=== PATIENT | female | born 1970 | race Two or more races ===

== ENCOUNTER → 2017-11-09 | Outpatient (CLI) | payer OTHER ==
[~2017-11-09] MED LIST: ALBUIS INH; ASPI81CH PO; Acidophilus La100 GM; BENA20 PO; Cinnamon3.7 ML; Cinnamon500 MG PO; DULO60 PO; EMOQUETTE1 EACH; ESZO2 PO; FAMO20 PO; FISH OIL + D31 EACH PO; FURO20; GABA300 PO; HYDACE5 PO; HYDR1TAB94 PO; INSULANI SC; INSULANPEN; LISI20 PO; LORA10ER PO; Levaquin500 MG PO; METF500 PO; METO50ER PO; MONT10T PO; Mucinex600 MG PO; NAPR500 PO; Novolog100 UNIT/1 SQ; ORACONB PO; OXYC10ER; PRAV40 PO; PROM25 PO; QUIN200 PO; SOMA350 MG; Sudogest30 MG; TEMA30 PO; TRAM50 PO; Vitamin D400 UNI2 PO; Zithromax250 MG PO
== END | disposition home or self-care (01) ==
LOC: LAB EV 16:27
DX: N39.0 Urinary tract infection, site not specified (principal)
CPT/HCPCS: 87086

== ENCOUNTER → 2017-11-22 | Outpatient (CLI) | payer OTHER ==
[2017-11-22 08:27] LABS: Adenovirus F 40/41 Not Detected (NOT DETECT); Astrovirus Not Detected (NOT DETECT); Campylobacter Sp Not Detected (NOT DETECT); Cryptosporidium Not Detected (NOT DETECT); Cyclospora Cayetanensis Not Detected (NOT DETECT); E. Coli O157 Not Detected (NOT DETECT); Entamoeba Histolytica Not Detected (NOT DETECT); Enteroaggregative E. coli-EAEC Not Detected (NOT DETECT); Enteropathogenic E. coli-EPEC Not Detected (NOT DETECT); Enterotoxigenic E. coli-ETEC Not Detected (NOT DETECT); Giardia Lamblia Not Detected (NOT DETECT); Norovirus GI/GII Not Detected (NOT DETECT); Plesiomonas Shigelloides Not Detected (NOT DETECT); Rotavirus A Not Detected (NOT DETECT); Salmonella Sp Not Detected (NOT DETECT); Sapovirus Not Detected (NOT DETECT); Shiga Toxin-prod E. coli-STEC Not Detected (NOT DETECT); Shigella/Enteroin E. coli-EIEC Not Detected (NOT DETECT); Vibrio Cholerae Not Detected (NOT DETECT); Vibrio Sp Not Detected (NOT DETECT); Yersinia Enterocolitica Not Detected (NOT DETECT)
== END ==
LOC: LAB 07:45 → LAB SHORT 07:45 → LAB FUT 11-20 17:25
PROVIDERS: Nurse Practitioner Family
DX: R19.7 Diarrhea, unspecified (principal)
CPT/HCPCS: 87507

== ENCOUNTER → 2018-01-13 | Outpatient (CLI) | payer OTHER ==
[~2018-01-13] MED LIST changes: -Cinnamon500 MG PO; -DULO60 PO; -ESZO2 PO; -FISH OIL + D31 EACH PO; -HYDR1TAB94 PO; +INSUASPI SC; -INSULANPEN; -LISI20 PO; -MONT10T PO; -Novolog100 UNIT/1 SQ; -ORACONB PO; -Vitamin D400 UNI2 PO
[2018-01-15 01:34] LABS: Source Cervix
== END | disposition home or self-care (01) ==
LOC: LAB 15:54 → LAB SHORT 15:54
PROVIDERS: Physician Assistant Medical
DX: N94.89 Other specified conditions associated with female genital organs and menstrual cycle (principal)
CPT/HCPCS: 88175

== ENCOUNTER 2018-02-07 17:53 | Emergency (ER) | payer OTHER ==
[~2018-02-07] VITALS: Ht 165.1 cm; Wt 98.4 kg
[~2018-02-07 17:53] MED LIST changes: -INSUASPI SC; +INSULANPEN; +Novolog100 UNIT/1 SQ
[2018-02-07] MEDS ORDERED: Cinnamon500 MG PO (19:17)
[2018-02-07] MEDS ORDERED: HYDR1TAB94 PO (19:19)
[2018-02-07] MEDS ORDERED: ESZO2 PO (19:21)
[2018-02-07] MEDS ORDERED: ORACONB PO (19:21)
[2018-02-07] MEDS ORDERED: DULO60 PO (19:22)
[2018-02-07] MEDS ORDERED: LISI20 PO (19:22)
[2018-02-07] MEDS ORDERED: MONT10T PO (19:23)
[2018-02-07] MEDS ORDERED: Vitamin D400 UNI2 PO (19:23)
[2018-02-07] MEDS ORDERED: FISH OIL + D31 EACH PO (19:23)
== END 2018-02-07 20:06 | disposition home or self-care (01) ==
LOC: ER 17:53
DX: R09.1 Pleurisy (principal); E11.9 Type 2 diabetes mellitus without complications; I10 Essential (primary) hypertension; E78.5 Hyperlipidemia, unspecified
CPT/HCPCS: 71260; 99284; Q9967

== ENCOUNTER → 2018-10-12 | Outpatient (CLI) | payer OTHER ==
[~2018-10-12] MED LIST changes: +Cinnamon500 MG PO; +DULO60 PO; +ESZO2 PO; +FISH OIL + D31 EACH PO; +HYDR1TAB94 PO; +LISI20 PO; +MONT10T PO; +ORACONB PO; +Vitamin D400 UNI2 PO
[2018-10-12 16:52] LABS: Appearance, Urine Hazy (Clear); Bilirubin, Urine Neg (Neg); Blood, Urine 2+ (Neg); Color, Urine Yellow (P-Yellow); Glucose Qualitative, Urine Neg (Neg); Ketones, Urine 1+ (Neg); Leukocyte Esterase, Urine Neg (Neg); Nitrite, Urine Neg (Neg); Protein, Urine 2+ (Neg); Specific Gravity, Urine 1.025 (1.003-1.022); Urobilinogen, Urine NORM (Normal)
[2018-10-12 17:16] LABS: Bacteria Mod /hpf; Calcium Oxalate Crystals Mod /hpf; Red Blood Cells, Urine 0-2 /hpf (0-2); Squamous Epithelial Cells Few /hpf (Few); White Blood Cells, Urine 0-2 /hpf (0-5)
== END ==
LOC: LAB SHORT 15:00 → LAB 15:00
PROVIDERS: Family Medicine
DX: R30.9 Painful micturition, unspecified (principal)
CPT/HCPCS: 81001; 87077; 87086; 87186

== ENCOUNTER → 2019-03-21 | Outpatient (CLI) | payer OTHER ==
[2019-03-21 20:04] LABS: Bilirubin, Urine Neg (Neg); Blood, Urine Neg (Neg); Glucose Qualitative, Urine 2+ (Neg); Ketones, Urine 1+ (Neg); Leukocyte Esterase, Urine 1+ (Neg); Nitrite, Urine Neg (Neg); Protein, Urine 2+ (Neg); Urobilinogen, Urine NORM (Normal)
[2019-03-21 20:12] LABS: Appearance, Urine Hazy (Clear); Color, Urine Yellow (P-Yellow)
[2019-03-21 20:13] LABS: Calcium Oxalate Crystals Mod /hpf; Red Blood Cells, Urine 0-2 /hpf (0-2); Squamous Epithelial Cells Many /hpf (Few)
[2019-03-21 20:15] LABS: Bacteria Few /hpf
== END | disposition home or self-care (01) ==
LOC: LAB 17:13 → LAB SHORT 17:13
PROVIDERS: Nurse Practitioner Family
DX: R30.0 Dysuria (principal)
CPT/HCPCS: 81001; 87086

== ENCOUNTER → 2020-03-13 | Outpatient (CLI) | payer OTHER ==
[2020-03-13 11:35] LABS: Source, Urine Clean Catch
[2020-03-13 11:59] LABS: Appearance, Urine Hazy (Clear); Bilirubin, Urine 1+ (Neg); Blood, Urine Trace (Neg); Color, Urine Orange (P-Yellow); Glucose Qualitative, Urine Neg (Normal); Ketones, Urine Neg (Neg); Leukocyte Esterase, Urine 1+ (Neg); Nitrite, Urine Pos (Neg); Protein, Urine 1+ (Neg); Urobilinogen, Urine 1+ (Normal)
[2020-03-13 12:00] LABS: Bacteria Few /hpf; Mucus Light (0-Heavy); Red Blood Cells, Urine 0-2 /hpf (0-2); Squamous Epithelial Cells Many /hpf (Few)
== END | disposition home or self-care (01) ==
LOC: LAB EV 11:33 → LAB SHORT 11:33
PROVIDERS: Family Medicine
DX: R30.9 Painful micturition, unspecified (principal)
CPT/HCPCS: 81001; 87086

== ENCOUNTER 2020-03-31 13:27 | Emergency (ER) | payer OTHER ==
[~2020-03-31] VITALS: Ht 165.1 cm; Wt 95.2 kg
[2020-03-31] MEDS ORDERED: BASAGLAR K100 UNIT/1 SC ×2 (14:00)
[2020-03-31] MEDS ORDERED: NOVOLIN R100 UNIT/2 SC (14:00)
[2020-03-31] MEDS ORDERED: DULO60 PO (14:00)
[2020-03-31] MEDS ORDERED: GABA800 PO (14:00)
[2020-03-31] MEDS ORDERED: METF500 PO (14:00)
[2020-03-31] MEDS ORDERED: LISI20 PO (14:01)
[2020-03-31] MEDS ORDERED: MONT10T PO (14:01)
[2020-03-31] MEDS ORDERED: MOBIC7.5 MG PO (14:01)
[2020-03-31] MEDS ORDERED: ESZO2 PO (14:02)
[2020-03-31] MEDS ORDERED: CLON.1 PO (14:02)
[2020-03-31] MEDS ORDERED: [UNRECOGNIZED DRUG - MIXTURE] PO (14:02)
[2020-03-31] MEDS ORDERED: TRAMADOL HCL E300 MG PO (14:03)
[2020-03-31 14:28] LABS: BASOPHILS ABSOLUTE AUTO 0.03 K/mm3 (0.00-0.23); BASOPHILS PERCENT AUTO 0 % (0-2); EOSINOPHILS PERCENT AUTO 1 % (0-6); Hematocrit 42.7 % (33.0-51.0); Hemoglobin 13.6 g/dL (11.5-16.0); IMMATURE GRAN ABSOLUTE AUTO 0.06 K/mm3 (0.00-0.10); IMMATURE GRAN PERCENT AUTO 0 % (0-1); LYMPHOCYTES ABSOLUTE AUTO 4.13 K/mm3 (0.84-5.20); LYMPHOCYTES PERCENT AUTO 31 % (21-46); MONOCYTES ABSOLUTE AUTO 0.86 K/mm3 (0.16-1.47); MONOCYTES PERCENT AUTO 6 % (4-13); Mean Corpuscular HGB Conc 31.9 g/dL (31.5-36.5); Mean Corpuscular Volume 85 fL (80-100); Mean Platelet Volume 10.6 fL (9.1-12.4); NEUTROPHILS ABSOLUTE AUTO 8.37 K/mm3 (1.96-9.15); NEUTROPHILS PERCENT AUTO 62 % (41-73); Platelet Count 329 K/mm3 (150-400); RDW Coefficient Variation 15.2 % (11.7-14.2); RDW Standard Deviation 46.4 fL (35.1-46.3); Red Blood Cell Count 5.04 M/mm3 (3.80-5.20); White Blood Cell Count 13.55 K/mm3 (4.00-11.30)
[2020-03-31 14:46] LABS: Alanine Aminotransfer (ALT/SGP 47 U/L (12-78); Albumin, Blood 3.1 g/dL (3.4-5.0); Albumin/Globulin Ratio 0.7 (0.8-1.8); Alk Phos 104 U/L (50-136); Anion Gap 9 mmol/L (6-16); Aspartate Aminotrans (AST/SGOT 43 U/L (12-37); Bilirubin, Total 0.3 mg/dL (0.1-1.0); Blood Urea Nitrogen 24 mg/dL (8-24); CO2, Blood 24 mmol/L (21-32); Calcium, Blood 9.2 mg/dL (8.5-10.1); Chloride, Blood 106 mmol/L (98-108); Globulin, Blood 4.7 g/dL (2.2-4.0); Glomerular Filtration Rate >60 (60-); Glucose, Blood 144 mg/dL (70-99); Potassium, Blood 4.1 mmol/L (3.5-5.5); Sodium, Blood 139 mmol/L (136-145); Total Protein, Blood 7.8 g/dL (6.4-8.2); Troponin I <0.015 ng/mL (0.000-0.040)
== END 2020-03-31 20:01 | disposition home or self-care (01) ==
LOC: ER 13:27
PROVIDERS: Emergency Medicine
DX: R07.9 Chest pain, unspecified (principal); Z79.4 Long term (current) use of insulin; Z79.899 Other long term (current) drug therapy
CPT/HCPCS: 36415; 71046; 71260; 80053; 82947; 83690; 84484; 85025; 85379; 93005; 93010; 99284-25; Q9967

== ENCOUNTER → 2020-08-16 | Outpatient (CLI) | payer OTHER ==
[~2020-08-16] MED LIST changes: +BASAGLAR K100 UNIT/1 SC; +CLON.1 PO; +GABA800 PO; +MOBIC7.5 MG PO; +NOVOLIN R100 UNIT/2 SC; +TRAMADOL HCL E300 MG PO; +[UNRECOGNIZED DRUG - MIXTURE] PO
[2020-08-20 12:09] LABS: ADENOVIRUS F 40/41 Not Detected (Not Detected); ASTROVIRUS Not Detected (Not Detected); C DIFFICILE TOXIN A/B Not Detected (Not Detected); CAMPYLOBACTER Not Detected (Not Detected); CRYPTOSPORIDIUM Not Detected (Not Detected); CYCLOSPORA CAYETANENSIS Not Detected (Not Detected); ENTAMOEBA HISTOLYTICA Not Detected (Not Detected); ENTEROAGGREGATIVE E COLI Not Detected (Not Detected); ENTEROPATHOGENIC E COLI Not Detected (Not Detected); ENTEROTOXIGENIC E COLI Not Detected (Not Detected); GIARDIA LAMBLIA Not Detected (Not Detected); NOROVIRUS GI/GII Not Detected (Not Detected); PLESIOMONAS SHIGELLOIDES Not Detected (Not Detected); ROTAVIRUS A Not Detected (Not Detected); SALMONELLA Not Detected (Not Detected); SAPOVIRUS Not Detected (Not Detected); SHIGA-TOXIN-PRODUCING E COLI Not Detected (Not Detected); SHIGELLA/ENTEROINVASIVE E COLI Not Detected (Not Detected); VIBRIO Not Detected (Not Detected); VIBRIO CHOLERAE Not Detected (Not Detected); YERSINIA ENTEROCOLITICA Not Detected (Not Detected)
== END | disposition home or self-care (01) ==
LOC: LAB SHORT 16:20 → LAB EV 16:20
PROVIDERS: Family Medicine
DX: R19.7 Diarrhea, unspecified (principal)
CPT/HCPCS: 0097U

== ENCOUNTER 2020-11-12 23:03 | Emergency (ER) | payer OTHER ==
[~2020-11-12] VITALS: Ht 680.7 cm; Wt 94.3 kg
== END 2020-11-13 00:40 | disposition home or self-care (01) ==
LOC: ER 23:03
DX: I10 Essential (primary) hypertension (principal); E11.9 Type 2 diabetes mellitus without complications; E78.5 Hyperlipidemia, unspecified; Z79.4 Long term (current) use of insulin; Z79.899 Other long term (current) drug therapy
CPT/HCPCS: 99283; A9270

== ENCOUNTER → 2021-01-24 | Outpatient (CLI) | payer OTHER | LOC: LAB SHORT 10:39 → LAB EV 10:39 | DX: R30.9 Painful micturition, unspecified (principal) | CPT/HCPCS: 87077; 87086; 87186 ==

== ENCOUNTER 2021-05-31 02:24 | Day surgery (SDC) | payer OTHER | END 2021-05-31 23:15 | disposition home or self-care (01) | LOC: WOUND 02:24 | DX: E11.621 Type 2 diabetes mellitus with foot ulcer (principal); L97.529 Non-pressure chronic ulcer of other part of left foot with unspecified severity; E11.40 Type 2 diabetes mellitus with diabetic neuropathy, unspecified; I10 Essential (primary) hypertension | CPT/HCPCS: G0463 ==

== ENCOUNTER → 2022-09-23 | Outpatient (CLI) | payer OTHER | END | disposition home or self-care (01) | LOC: LAB 17:31 → LAB SHORT 17:31 | DX: N39.0 Urinary tract infection, site not specified (principal) | CPT/HCPCS: 87077; 87086; 87147; 87186 ==

== ENCOUNTER → 2022-10-28 | Outpatient (CLI) | payer OTHER | END | disposition home or self-care (01) | LOC: LAB SHORT 17:39 | DX: N39.0 Urinary tract infection, site not specified (principal) | CPT/HCPCS: 87077; 87086; 87186 ==

== ENCOUNTER → 2022-11-15 | Outpatient (CLI) | payer OTHER ==
[2022-11-15 12:52] LABS: BASOPHILS ABSOLUTE AUTO 0.04 K/mm3 (0.00-0.23); BASOPHILS PERCENT AUTO 0 % (0-2); EOSINOPHILS ABSOLUTE AUTO 0.21 K/mm3 (0.00-0.68); EOSINOPHILS PERCENT AUTO 2 % (0-6); Hematocrit 43.3 % (33.0-51.0); Hemoglobin 14.1 g/dL (11.5-16.0); IMMATURE GRAN ABSOLUTE AUTO 0.04 K/mm3 (0.00-0.10); IMMATURE GRAN PERCENT AUTO 0 % (0-1); LYMPHOCYTES ABSOLUTE AUTO 3.06 K/mm3 (0.84-5.20); LYMPHOCYTES PERCENT AUTO 28 % (21-46); MONOCYTES ABSOLUTE AUTO 0.66 K/mm3 (0.16-1.47); MONOCYTES PERCENT AUTO 6 % (4-13); Mean Corpuscular HGB 27.8 pg (26.0-34.0); Mean Corpuscular HGB Conc 32.6 g/dL (31.5-36.5); Mean Corpuscular Volume 85 fL (80-100); Mean Platelet Volume 10.4 fL (9.1-12.4); NEUTROPHILS ABSOLUTE AUTO 7.05 K/mm3 (1.96-9.15); NEUTROPHILS PERCENT AUTO 64 % (41-73); Platelet Count 297 K/mm3 (150-400); RDW Coefficient Variation 13.2 % (11.7-14.2); RDW Standard Deviation 40.6 fL (35.1-46.3); Red Blood Cell Count 5.07 M/mm3 (3.80-5.20); White Blood Cell Count 11.06 K/mm3 (4.00-11.30)
[2022-11-15 13:05] LABS: Albumin, Blood 3.5 g/dL (3.4-5.0); Albumin/Globulin Ratio 0.8 (0.8-1.8); Bilirubin, Total 0.3 mg/dL (0.1-1.0); Bun/Creatinine Ratio 13.2 (12.0-20.0); Calcium, Blood 9.4 mg/dL (8.5-10.1); Creatinine, Blood 1.06 mg/dL (0.40-1.00); Globulin, Blood 4.5 g/dL (2.2-4.0); Potassium, Blood 4.7 mmol/L (3.5-5.5)
== END | disposition home or self-care (01) ==
LOC: LAB 12:48 → LAB SHORT 12:48
PROVIDERS: Physician Assistant
DX: R41.0 Disorientation, unspecified (principal)
CPT/HCPCS: 80053; 85025

== ENCOUNTER → 2022-11-18 | Outpatient (CLI) | payer OTHER ==
[2022-11-18 09:45] LABS: Hematocrit 40.4 % (33.0-51.0); Hemoglobin 12.9 g/dL (11.5-16.0); Mean Corpuscular HGB 27.6 pg (26.0-34.0); Mean Corpuscular HGB Conc 31.9 g/dL (31.5-36.5); Mean Corpuscular Volume 86 fL (80-100); Mean Platelet Volume 10.8 fL (9.1-12.4); Platelet Count 286 K/mm3 (150-400); RDW Coefficient Variation 13.5 % (11.7-14.2); RDW Standard Deviation 41.9 fL (35.1-46.3); Red Blood Cell Count 4.68 M/mm3 (3.80-5.20); White Blood Cell Count 10.84 K/mm3 (4.00-11.30)
[2022-11-18 10:14] LABS: Alanine Aminotransfer (ALT/SGP 77 U/L (12-78); Albumin, Blood 3.2 g/dL (3.4-5.0); Albumin/Globulin Ratio 0.8 (0.8-1.8); Alk Phos 131 U/L (50-136); Anion Gap 8 mmol/L (6-16); Aspartate Aminotrans (AST/SGOT 77 U/L (12-37); Bilirubin, Total 0.4 mg/dL (0.1-1.0); Blood Urea Nitrogen 28 mg/dL (8-24); CHOL/HDL RATIO 3.5; CO2, Blood 23 mmol/L (21-32); Calcium, Blood 8.8 mg/dL (8.5-10.1); Chloride, Blood 105 mmol/L (98-108); Cholesterol 156 mg/dL (50-200); Creatinine, Blood 1.87 mg/dL (0.40-1.00); Glomerular Filtration Rate 32 (60-); Glucose, Blood 388 mg/dL (70-99); HDL Cholesterol 44 mg/dL (>39); LDL/HDL RATIO 1.7; Low Density Lipoprotein Chol 74 mg/dL (0-110); Sodium, Blood 136 mmol/L (136-145); Total Protein, Blood 7.2 g/dL (6.4-8.2); Triglycerides 191 mg/dL (30-160); Very Low Density Lipoprot Chol 38 mg/dL (6-32)
== END | disposition home or self-care (01) ==
LOC: LAB SHORT 06:58
PROVIDERS: Family Medicine
DX: E11.49 Type 2 diabetes mellitus with other diabetic neurological complication (principal); E78.5 Hyperlipidemia, unspecified
CPT/HCPCS: 36415; 80053; 80061; 83036; 85027

== ENCOUNTER 2023-04-19 18:35 | Inpatient (IN) | payer OTHER ==
[~2023-04-19] VITALS: Ht 170.2 cm; Wt 97.1 kg
[2023-04-19 19:15] LABS: BASOPHILS ABSOLUTE AUTO 0.05 K/mm3 (0.00-0.23); BASOPHILS PERCENT AUTO 0 % (0-2); EOSINOPHILS ABSOLUTE AUTO 0.12 K/mm3 (0.00-0.68); EOSINOPHILS PERCENT AUTO 1 % (0-6); Hematocrit 40.2 % (33.0-51.0); Hemoglobin 13.2 g/dL (11.5-16.0); IMMATURE GRAN ABSOLUTE AUTO 0.09 K/mm3 (0.00-0.10); IMMATURE GRAN PERCENT AUTO 1 % (0-1); LYMPHOCYTES ABSOLUTE AUTO 2.11 K/mm3 (0.84-5.20); LYMPHOCYTES PERCENT AUTO 11 % (21-46); MONOCYTES PERCENT AUTO 10 % (4-13); Mean Corpuscular HGB 27.2 pg (26.0-34.0); Mean Corpuscular HGB Conc 32.8 g/dL (31.5-36.5); Mean Corpuscular Volume 83 fL (80-100); Mean Platelet Volume 10.3 fL (9.1-12.4); NEUTROPHILS ABSOLUTE AUTO 15.53 K/mm3 (1.96-9.15); NEUTROPHILS PERCENT AUTO 78 % (41-73); Platelet Count 355 K/mm3 (150-400); RDW Coefficient Variation 13.3 % (11.7-14.2); RDW Standard Deviation 40.4 fL (35.1-46.3); Red Blood Cell Count 4.85 M/mm3 (3.80-5.20)
[2023-04-19 19:38] LABS: Albumin, Blood 3.5 g/dL (3.4-5.0); Albumin/Globulin Ratio 0.8 (0.8-1.8); Bilirubin, Total 0.5 mg/dL (0.1-1.0); Bun/Creatinine Ratio 20.2 (12.0-20.0); Calcium, Blood 8.7 mg/dL (8.5-10.1); Creatinine, Blood 0.69 mg/dL (0.40-1.00); Globulin, Blood 4.4 g/dL (2.2-4.0); Potassium, Blood 4.1 mmol/L (3.5-5.5); Total Protein, Blood 7.9 g/dL (6.4-8.2)
[2023-04-19 21:59] LABS: Source, Urine Voided
[2023-04-19 22:50] LABS: Bilirubin, Urine Neg (Neg); Blood, Urine 3+ (Neg); Glucose Qualitative, Urine 3+ (Neg); Ketones, Urine 3+ (Neg); Leukocyte Esterase, Urine Neg (Neg); Nitrite, Urine Neg (Neg); Protein, Urine 1+ (Neg); Urobilinogen, Urine NORM (Normal)
[2023-04-19 23:14] LABS: Appearance, Urine Hazy (Clear); Color, Urine Yellow (P-Yellow)
[2023-04-19 23:15] LABS: Bacteria Few /hpf; Squamous Epithelial Cells Mod /hpf (Few); White Blood Cells, Urine 0-2 /hpf (0-5)
[2023-04-20 02:31] LABS: Adenovirus F 40/41 Not Detected (NOT DETECT); Astrovirus Not Detected (NOT DETECT); Campylobacter Sp Not Detected (NOT DETECT); Cryptosporidium Not Detected (NOT DETECT); Cyclospora Cayetanensis Not Detected (NOT DETECT); E. Coli O157 Not Detected (NOT DETECT); Entamoeba Histolytica Not Detected (NOT DETECT); Enteroaggregative E. coli-EAEC Not Detected (NOT DETECT); Enteropathogenic E. coli-EPEC Not Detected (NOT DETECT); Enterotoxigenic E. coli-ETEC Not Detected (NOT DETECT); Giardia Lamblia Not Detected (NOT DETECT); Norovirus GI/GII Detected (NOT DETECT); Plesiomonas Shigelloides Not Detected (NOT DETECT); Rotavirus A Not Detected (NOT DETECT); Salmonella Sp Not Detected (NOT DETECT); Sapovirus Not Detected (NOT DETECT); Shiga Toxin-prod E. coli-STEC Not Detected (NOT DETECT); Shigella/Enteroin E. coli-EIEC Not Detected (NOT DETECT); Vibrio Cholerae Not Detected (NOT DETECT); Vibrio Sp Not Detected (NOT DETECT); Yersinia Enterocolitica Not Detected (NOT DETECT)
[2023-04-20] MEDS ORDERED: IPRATROPIUM BRO15 ML (04:07)
[2023-04-20 04:50] LABS: Hematocrit 37.2 % (33.0-51.0); Hemoglobin 11.9 g/dL (11.5-16.0); Mean Corpuscular Volume 84 fL (80-100); Mean Platelet Volume 10.2 fL (9.1-12.4); Platelet Count 269 K/mm3 (150-400); RDW Coefficient Variation 13.6 % (11.7-14.2); RDW Standard Deviation 42.1 fL (35.1-46.3); Red Blood Cell Count 4.41 M/mm3 (3.80-5.20)
[2023-04-20 05:18] VITALS: BP 150/72
[2023-04-20 05:20] LABS: Albumin, Blood 2.7 g/dL (3.4-5.0); Albumin/Globulin Ratio 0.7 (0.8-1.8); Bilirubin, Total 0.4 mg/dL (0.1-1.0); Bun/Creatinine Ratio 16.1 (12.0-20.0); Calcium, Blood 7.7 mg/dL (8.5-10.1); Creatinine, Blood 0.75 mg/dL (0.40-1.00); Globulin, Blood 3.8 g/dL (2.2-4.0); Magnesium, Blood 1.5 mg/dL (1.6-2.4); Potassium, Blood 4.1 mmol/L (3.5-5.5); Total Protein, Blood 6.5 g/dL (6.4-8.2)
[2023-04-20 05:54] LABS: BAND PERCENT MAN 14 % (0-8); BASOPHILS PERCENT MAN 0 % (0-2); EOSINOPHILS PERCENT MAN 0 % (0-6); LYMPHOCYTES ABSOLUTE MAN 1.93 K/mm3 (0.84-5.20); LYMPHOCYTES PERCENT MAN 12 % (21-46); MONOCYTES ABSOLUTE MAN 1.77 K/mm3 (0.16-1.47); MONOCYTES PERCENT MAN 11 % (4-13); NEUTROPHILS ABSOLUTE MAN 12.39 K/mm3 (1.96-9.15); SEG NEUTROPHILS PERCENT MAN 63 % (41-73); TOTAL CELLS COUNTED 100
[2023-04-20 07:16] VITALS: BP 146/66
--- NOTE | 2023-04-20 07:42 | NUR ---
PATIENT IS A&OX4, WITH AN UNCOMFORTABLE ABDOMEN (PRIMARILY UPPER QUADRANTS) AND VERY FREQUENT WATERY/MUCOUSY STOOLS. ABLE TO STAND AND PIVOT TO THE COMMODE WITH MINIMAL ASSIST, HOWEVER SHE FEELS THAT SHE HAS GOTTEN VERY WEAK OVER THE LAST COUPLE OF DAYS SINCE EVERYTHING SHE EATS OR DRINKS RUNS "STRAIGHT THROUGH HER BOWELS". ORDER OBTAINED FROM RESIDENT TO REMOVE CATHETER THAT HAD BEEN PLACED IN ER. LEFT 2ND TOE CLEANSED WITH WOUND WASH AND RE-DRESSED WITH A FOAM DRESSING. TRAMADOL GIVEN FOR 5/10 ABDOMINAL PAIN
--- NOTE | 2023-04-20 08:00 | NUR ---
pt sitting up in chair for breakfast, a/ox4, pleasant and cooperative with care, follows commands well, denies pain but does report some tenderness in abd with palpation, lungs are clear t/o, resp even and unlabored, no cough noted, on r/a, hrr, 2+ edema noted to b/l le, pt reports that it's chronic, ppp+2, cap refill<3sec, vs stable, afebrile, iv site is clear and patent, btx4, abd flat soft nontender, having mucous stools, voids without diff, skin c/w/d, maew, vince, call light in reach.
[2023-04-20 15:03] VITALS: BP 137/60
--- NOTE | 2023-04-20 19:27 | NUR ---
pt has had numerous bm's today, usually small amounts at a time, this am was yellow mucousy, this evening is dark green, mocouse, having more abd pain this evening as well. call light in reach.
[2023-04-20 20:56] VITALS: BP 163/76
[2023-04-21 05:16] LABS: Hematocrit 34.6 % (33.0-51.0); Hemoglobin 11.5 g/dL (11.5-16.0); Mean Corpuscular HGB 27.1 pg (26.0-34.0); Mean Corpuscular HGB Conc 33.2 g/dL (31.5-36.5); Mean Corpuscular Volume 81 fL (80-100); Mean Platelet Volume 10.5 fL (9.1-12.4); Platelet Count 264 K/mm3 (150-400); RDW Coefficient Variation 13.3 % (11.7-14.2); RDW Standard Deviation 39.4 fL (35.1-46.3); Red Blood Cell Count 4.25 M/mm3 (3.80-5.20); White Blood Cell Count 13.05 K/mm3 (4.00-11.30)
[2023-04-21 05:55] LABS: Bun/Creatinine Ratio 12.5 (12.0-20.0); Calcium, Blood 8.1 mg/dL (8.5-10.1); Creatinine, Blood 0.64 mg/dL (0.40-1.00); Potassium, Blood 3.1 mmol/L (3.5-5.5)
[2023-04-21 06:06] VITALS: BP 143/58
[2023-04-21 06:21] LABS: BAND PERCENT MAN 23 % (0-8); BASOPHILS PERCENT MAN 0 % (0-2); EOSINOPHILS ABSOLUTE MAN 0.26 K/mm3 (0.00-0.68); EOSINOPHILS PERCENT MAN 2 % (0-6); LYMPHOCYTES ABSOLUTE MAN 1.82 K/mm3 (0.84-5.20); LYMPHOCYTES PERCENT MAN 14 % (21-46); MONOCYTES ABSOLUTE MAN 1.04 K/mm3 (0.16-1.47); MONOCYTES PERCENT MAN 8 % (4-13); MYELOCYTE ABSOLUTE MAN 0.13 K/mm3 (0.00-0.00); MYELOCYTE PERCENT MAN 1 % (0-0); NEUTROPHILS ABSOLUTE MAN 9.78 K/mm3 (1.96-9.15); SEG NEUTROPHILS PERCENT MAN 52 % (41-73); TOTAL CELLS COUNTED 100
--- NOTE | 2023-04-21 06:23 | NUR ---
SHIFT SUMMARY PT IN PAIN THIS SHIFT REQUIRING TRAMADOL Q4H. NEW IV PLACED OVERNIGHT. PT STATED SHE IS VOIDING WITH OUT DIFFICULTIES AND STOOLS HAVE SLOWED DOWN. Q1H FIRE SAFETY CHECKS PERFORMED, NO SOURCES OF IGNITION FOUND
[2023-04-21 07:37] VITALS: BP 138/56
--- NOTE | 2023-04-21 08:00 | NUR ---
pt laying in bed a/ox4, pleasant and coopertive with care, follows commands well, denies pain this am, states she's doing well, lungs are clear t/o, resp even and unlabored, no cough noted, hrr, no edema noted ppp+2, cap refill<3sec, vs stable, afebrile, piv site to lfa, site is clear and patent, btx4, abd flat soft a bit tender, voids via bsc, skin is c/w/d, except for second left toe has a wound covered with a bandaid, no drainage noted, vince rubin, call light in reach.
[2023-04-21 15:21] VITALS: BP 151/77
[2023-04-21 20:15] VITALS: BP 146/70
[2023-04-22 04:39] VITALS: BP 149/74
--- NOTE | 2023-04-22 05:34 | NUR ---
SHIFT SUMMARY 357 PT A&OX4 AND PLEASANT. PT REPORTS LESS FREQUENCY IN STOOL WITH SOME SMALL FORMED STOOL. PT ALSO REPORTS SOME TENDERNESS D/T WIPING. WET WIPES AND BARRIER CREAM PROVIDED. PT C/O CHRONIC BACK PAIN AND WAS MEDICATED PER EMAR. PT WAS ABLE TO GET SEVERAL HOURS OF SLEEP. UP INDEPENDENTLY TO BATHROOM. DAUGHTER IN ROOM AT START OF SHIFT. PT REMINDED OF POSSIBLE SOURCES OF IGNITION AND NO SMOKING POLICY. BED IN LOWEST POSITION AND CALL LIGHT IN REACH.
[2023-04-22 06:19] LABS: Hematocrit 35.8 % (33.0-51.0); Hemoglobin 11.8 g/dL (11.5-16.0); Mean Corpuscular Volume 82 fL (80-100); Mean Platelet Volume 10.7 fL (9.1-12.4); Platelet Count 294 K/mm3 (150-400); RDW Coefficient Variation 13.2 % (11.7-14.2); RDW Standard Deviation 39.3 fL (35.1-46.3); Red Blood Cell Count 4.37 M/mm3 (3.80-5.20); White Blood Cell Count 10.19 K/mm3 (4.00-11.30)
[2023-04-22 06:50] LABS: BAND PERCENT MAN 10 % (0-8); BASOPHILS PERCENT MAN 0 % (0-2); EOSINOPHILS ABSOLUTE MAN 1.01 K/mm3 (0.00-0.68); EOSINOPHILS PERCENT MAN 10 % (0-6); LYMPHOCYTES ABSOLUTE MAN 1.73 K/mm3 (0.84-5.20); LYMPHOCYTES PERCENT MAN 17 % (21-46); MONOCYTES ABSOLUTE MAN 1.22 K/mm3 (0.16-1.47); MONOCYTES PERCENT MAN 12 % (4-13); MYELOCYTE PERCENT MAN 3 % (0-0); NEUTROPHILS ABSOLUTE MAN 5.91 K/mm3 (1.96-9.15); SEG NEUTROPHILS PERCENT MAN 48 % (41-73); TOTAL CELLS COUNTED 100
[2023-04-22 07:13] VITALS: BP 166/73
[2023-04-22 10:58] LABS: Albumin, Blood 2.8 g/dL (3.4-5.0); Albumin/Globulin Ratio 0.7 (0.8-1.8); Bilirubin, Total 0.2 mg/dL (0.1-1.0); Bun/Creatinine Ratio 11.7 (12.0-20.0); Calcium, Blood 8.3 mg/dL (8.5-10.1); Creatinine, Blood 0.77 mg/dL (0.40-1.00); Potassium, Blood 3.1 mmol/L (3.5-5.5); Total Protein, Blood 6.8 g/dL (6.4-8.2)
[2023-04-22 15:48] VITALS: BP 153/72
--- NOTE | 2023-04-22 17:14 | NUR ---
SHIFT SUMMARY PT IS ALERT AND ORIENTED X 4, SHE IS INDEPENDENT IN THE ROOM AND IS STEADY ON HER FEET. VSS. SHE IS ON RA AND DENIED FEELINGS OF CHEST PAIN/PRESSURE, SHE DENIED FEELING SOB, SHE DENIED FEELINGS OF NAUSEA. ABD PAIN REPORTED DUE TO C-DIFF. PT REPORTED THAT SHE HAS LOOSE BM IMMEDIATELY AFTER EATING BUT THE OCCURENCES OF HAVING A BM HAVE DECREASED COMPARED TO PREVIOUS DAYS, SHE REPORTS LOOSE/MUCOUS LIKE STOOL. HER DAUGHTER WAS AT BEDSIDE DURING SHIFT. BANDAGE ON SECOND TOE OF LEFT FOOT CHANGED, ULCER NOTED TO BE SMALL IN SIZE, APPROX SIZE OF A DIME, EXTREMETY IS COOL TO TOUCH BUT PT DENIES FEELING PAIN AT ULCER SITE. WILL CONTINUE TO MONITOR AND REPORT TO ONCOMING RN.
[2023-04-22 19:13] VITALS: BP 157/61
[2023-04-23 04:04] VITALS: BP 155/71
[2023-04-23 04:52] LABS: BASOPHILS ABSOLUTE AUTO 0.08 K/mm3 (0.00-0.23); BASOPHILS PERCENT AUTO 1 % (0-2); EOSINOPHILS ABSOLUTE AUTO 0.69 K/mm3 (0.00-0.68); EOSINOPHILS PERCENT AUTO 7 % (0-6); Hematocrit 37.6 % (33.0-51.0); Hemoglobin 12.3 g/dL (11.5-16.0); IMMATURE GRAN ABSOLUTE AUTO 0.21 K/mm3 (0.00-0.10); IMMATURE GRAN PERCENT AUTO 2 % (0-1); LYMPHOCYTES ABSOLUTE AUTO 3.15 K/mm3 (0.84-5.20); LYMPHOCYTES PERCENT AUTO 30 % (21-46); MONOCYTES ABSOLUTE AUTO 1.04 K/mm3 (0.16-1.47); MONOCYTES PERCENT AUTO 10 % (4-13); Mean Corpuscular HGB 27.1 pg (26.0-34.0); Mean Corpuscular HGB Conc 32.7 g/dL (31.5-36.5); Mean Corpuscular Volume 83 fL (80-100); Mean Platelet Volume 10.6 fL (9.1-12.4); NEUTROPHILS PERCENT AUTO 50 % (41-73); Platelet Count 312 K/mm3 (150-400); RDW Coefficient Variation 13.2 % (11.7-14.2); RDW Standard Deviation 39.9 fL (35.1-46.3); Red Blood Cell Count 4.54 M/mm3 (3.80-5.20); White Blood Cell Count 10.37 K/mm3 (4.00-11.30)
[2023-04-23 05:11] LABS: Albumin/Globulin Ratio 0.8 (0.8-1.8); Bilirubin, Total 0.2 mg/dL (0.1-1.0); Bun/Creatinine Ratio 13.6 (12.0-20.0); Calcium, Blood 8.6 mg/dL (8.5-10.1); Creatinine, Blood 0.66 mg/dL (0.40-1.00); Potassium, Blood 3.3 mmol/L (3.5-5.5)
--- NOTE | 2023-04-23 06:02 | NUR ---
SHIFT SUMMARY PT DENIES HAVING BM'S DURING THE NIGHT. PT HAS BEEN UP TO VOID ONLY. PT HAS BEEN SLEEPING WELL THROUGHOUT SHIFT. PT WAS TX FOR BACK DISCOMFORT PER DEC. NO NEW ISSUES NOTED. CALL LIGHT IN REACH.
[2023-04-23 07:29] VITALS: BP 153/62
[2023-04-23] MEDS ORDERED: BASAGLAR K100 UNIT/6 SC (09:41)
[2023-04-23] MEDS ORDERED: AMLO5 PO (09:41)
[2023-04-23] MEDS ORDERED: INSULANPEN SC (09:42)
[2023-04-23] MEDS ORDERED: HUMALOG KW100 UNIT/1 SC (09:44)
[2023-04-23] MEDS ORDERED: METF500C PO (09:44)
[2023-04-23] MEDS ORDERED: LISI20 PO (09:44)
[2023-04-23] MEDS ORDERED: TRAM50 PO (09:45)
[2023-04-23] MEDS ORDERED: ALOGLIPTIN12.5 M1 PO (09:45)
[2023-04-23] MEDS ORDERED: Vancocin HCl125 MG PO (09:47)
--- NOTE | 2023-04-23 13:18 | NUR ---
PT DISCHARGED WITH DC INSTRUCTIONS 1317 SENT WITH BELONGINGS, WHEELCHAIR OUT TO PRIVATE CAR FOR DAUGHTER TO DRIVE HOME
== END 2023-04-23 13:20 | disposition home or self-care (01) | DRG 872 ==
LOC: ER 18:35 → MEDS 18:36 → ENPENDDIS 04-23 10:42 → MEDS 04-23 13:20
PROVIDERS: Emergency Medicine; Family Medicine; Internal Medicine; Student in an Organized Health Care Education/Training Program; ADMIT Internal Medicine
PROC: 3E03329 Introduction of Other Anti-infective into Peripheral Vein, Percutaneous Approach (ICD-10-PCS; principal; 2023-04-20)
PROC: 0T9B70Z Drainage of Bladder with Drainage Device, Via Natural or Artificial Opening (ICD-10-PCS; 2023-04-20)
DX: A41.9 Sepsis, unspecified organism (principal); A04.72 Enterocolitis due to Clostridium difficile, not specified as recurrent; A08.11 Acute gastroenteropathy due to Norwalk agent; E11.65 Type 2 diabetes mellitus with hyperglycemia; I10 Essential (primary) hypertension; E78.5 Hyperlipidemia, unspecified; F41.9 Anxiety disorder, unspecified; E86.0 Dehydration; J30.2 Other seasonal allergic rhinitis; M54.9 Dorsalgia, unspecified; Z79.4 Long term (current) use of insulin; Z79.84 Long term (current) use of oral hypoglycemic drugs; Z79.811 Long term (current) use of aromatase inhibitors; Z98.890 Other specified postprocedural states; Z98.1 Arthrodesis status; Z90.49 Acquired absence of other specified parts of digestive tract; Z79.899 Other long term (current) drug therapy
CPT/HCPCS: 36415; 51702; 51798; 80048; 80053; 81001; 82947; 83605; 83690; 83735; 85025; 87040; 87324; 87507; 93005; 93010; 96361; 96365; 96372; 96375; 99284-25; A9270; G0378; J0696; J1650; J1815; J1885; J3480; J7030; J7050; J7120

== ENCOUNTER → 2023-07-17 | Outpatient (CLI) | payer OTHER ==
[~2023-07-17] MED LIST changes: +ALOGLIPTIN12.5 M1 PO; +AMLO5 PO; +BASAGLAR K100 UNIT/6 SC; +HUMALOG KW100 UNIT/1 SC; +INSULANPEN SC; +IPRATROPIUM BRO15 ML; +METF500C PO; +Vancocin HCl125 MG PO
== END | disposition home or self-care (01) ==
LOC: LAB SHORT 12:00 → LAB 12:00
DX: L30.9 Dermatitis, unspecified (principal)
CPT/HCPCS: 87220

== ENCOUNTER → 2023-08-28 | Outpatient (CLI) | payer OTHER | LOC: LAB SHORT 08:31 → LAB 08:31 | DX: N39.0 Urinary tract infection, site not specified (principal) | CPT/HCPCS: 87077; 87086; 87186 ==

== ENCOUNTER → 2023-09-04 | Outpatient (CLI) | payer OTHER ==
[2023-09-04 09:48] LABS: Source, Urine Clean Catch
[2023-09-04 09:51] LABS: BASOPHILS ABSOLUTE AUTO 0.02 K/mm3 (0.00-0.23); BASOPHILS PERCENT AUTO 0 % (0-2); EOSINOPHILS ABSOLUTE AUTO 0.06 K/mm3 (0.00-0.68); EOSINOPHILS PERCENT AUTO 1 % (0-6); Hematocrit 40.5 % (33.0-51.0); Hemoglobin 13.5 g/dL (11.5-16.0); IMMATURE GRAN ABSOLUTE AUTO 0.05 K/mm3 (0.00-0.10); IMMATURE GRAN PERCENT AUTO 1 % (0-1); LYMPHOCYTES ABSOLUTE AUTO 1.99 K/mm3 (0.84-5.20); LYMPHOCYTES PERCENT AUTO 24 % (21-46); MONOCYTES ABSOLUTE AUTO 0.87 K/mm3 (0.16-1.47); MONOCYTES PERCENT AUTO 11 % (4-13); Mean Corpuscular HGB 26.8 pg (26.0-34.0); Mean Corpuscular HGB Conc 33.3 g/dL (31.5-36.5); Mean Corpuscular Volume 80 fL (80-100); Mean Platelet Volume 10.6 fL (9.1-12.4); NEUTROPHILS ABSOLUTE AUTO 5.27 K/mm3 (1.96-9.15); NEUTROPHILS PERCENT AUTO 64 % (41-73); Platelet Count 272 K/mm3 (150-400); RDW Coefficient Variation 13.9 % (11.7-14.2); RDW Standard Deviation 40.5 fL (35.1-46.3); Red Blood Cell Count 5.04 M/mm3 (3.80-5.20); White Blood Cell Count 8.26 K/mm3 (4.00-11.30)
[2023-09-04 09:57] LABS: Bacteria Few /hpf; Squamous Epithelial Cells Many /hpf (Few)
[2023-09-04 10:01] LABS: Albumin, Blood 3.3 g/dL (3.4-5.0); Albumin/Globulin Ratio 0.7 (0.8-1.8); Bilirubin, Total 0.4 mg/dL (0.1-1.0); Bun/Creatinine Ratio 13.9 (12.0-20.0); Calcium, Blood 8.8 mg/dL (8.5-10.1); Creatinine, Blood 1.22 mg/dL (0.40-1.00); Globulin, Blood 4.7 g/dL (2.2-4.0); Potassium, Blood 4.1 mmol/L (3.5-5.5)
== END | disposition home or self-care (01) ==
LOC: LAB 09:45 → LAB SHORT 09:45
PROVIDERS: Physician Assistant Medical
DX: R10.10 Upper abdominal pain, unspecified (principal)
CPT/HCPCS: 80053; 81015; 83690; 85025

== ENCOUNTER → 2023-10-20 | Outpatient (CLI) | payer OTHER | LOC: LAB 14:05 → LAB SHORT 14:05 | DX: N39.0 Urinary tract infection, site not specified (principal) | CPT/HCPCS: 87077; 87086; 87186 ==

== ENCOUNTER → 2023-10-31 | Outpatient (CLI) | payer OTHER ==
[2023-10-31 11:14] LABS: BASOPHILS ABSOLUTE AUTO 0.04 K/mm3 (0.00-0.23); BASOPHILS PERCENT AUTO 0 % (0-2); EOSINOPHILS ABSOLUTE AUTO 0.45 K/mm3 (0.00-0.68); EOSINOPHILS PERCENT AUTO 5 % (0-6); Hematocrit 38.6 % (33.0-51.0); Hemoglobin 12.3 g/dL (11.5-16.0); IMMATURE GRAN ABSOLUTE AUTO 0.03 K/mm3 (0.00-0.10); IMMATURE GRAN PERCENT AUTO 0 % (0-1); LYMPHOCYTES ABSOLUTE AUTO 3.25 K/mm3 (0.84-5.20); LYMPHOCYTES PERCENT AUTO 33 % (21-46); MONOCYTES PERCENT AUTO 6 % (4-13); Mean Corpuscular HGB 26.5 pg (26.0-34.0); Mean Corpuscular HGB Conc 31.9 g/dL (31.5-36.5); Mean Corpuscular Volume 83 fL (80-100); Mean Platelet Volume 10.4 fL (9.1-12.4); NEUTROPHILS ABSOLUTE AUTO 5.43 K/mm3 (1.96-9.15); NEUTROPHILS PERCENT AUTO 55 % (41-73); Platelet Count 284 K/mm3 (150-400); RDW Coefficient Variation 15.3 % (11.7-14.2); RDW Standard Deviation 45.4 fL (35.1-46.3); Red Blood Cell Count 4.64 M/mm3 (3.80-5.20)
[2023-10-31 11:36] LABS: Albumin, Blood 3.5 g/dL (3.4-5.0); Albumin/Globulin Ratio 0.8 (0.8-1.8); Bilirubin, Total 0.3 mg/dL (0.1-1.0); Bun/Creatinine Ratio 24.3 (12.0-20.0); Calcium, Blood 9.6 mg/dL (8.5-10.1); Creatinine, Blood 1.07 mg/dL (0.40-1.00); Globulin, Blood 4.3 g/dL (2.2-4.0); Potassium, Blood 4.5 mmol/L (3.5-5.5); Thyroid Stimulating Hormone 1.247 uIU/mL (0.360-4.800); Total Protein, Blood 7.8 g/dL (6.4-8.2)
== END | disposition home or self-care (01) ==
LOC: LAB SHORT 11:11 → LAB 11:11
PROVIDERS: Physician Assistant Medical
DX: E11.65 Type 2 diabetes mellitus with hyperglycemia (principal); N39.41 Urge incontinence; R53.83 Other fatigue
CPT/HCPCS: 80053; 82043; 84443; 85025

== ENCOUNTER 2024-05-23 13:32 | Inpatient (IN) | payer OTHER ==
[~2024-05-23] VITALS: Ht 162.6 cm; Wt 95.8 kg
[~2024-05-23 13:32] MED LIST changes: +ACTOS30 MG PO; +CEPH500 PO; +DULOXETINE HCL60 M1 PO; +HUMULIN R100 UNIT/2; +LIPITOR10 MG PO; +MELO7.5 PO; +METFORMIN HCL500 M3 PO; +OZEMPIC1 MG/0.72; +PREGABALIN75 MG PO
[2024-05-23 14:19] LABS: BASOPHILS ABSOLUTE AUTO 0.04 K/mm3 (0.00-0.23); BASOPHILS PERCENT AUTO 0 % (0-2); EOSINOPHILS ABSOLUTE AUTO 0.25 K/mm3 (0.00-0.68); EOSINOPHILS PERCENT AUTO 2 % (0-6); Hematocrit 39.3 % (33.0-51.0); Hemoglobin 12.7 g/dL (11.5-16.0); IMMATURE GRAN ABSOLUTE AUTO 0.04 K/mm3 (0.00-0.10); IMMATURE GRAN PERCENT AUTO 0 % (0-1); LYMPHOCYTES PERCENT AUTO 29 % (21-46); MONOCYTES ABSOLUTE AUTO 0.97 K/mm3 (0.16-1.47); MONOCYTES PERCENT AUTO 8 % (4-13); Mean Corpuscular HGB 26.7 pg (26.0-34.0); Mean Corpuscular HGB Conc 32.3 g/dL (31.5-36.5); Mean Corpuscular Volume 83 fL (80-100); Mean Platelet Volume 10.4 fL (9.1-12.4); NEUTROPHILS ABSOLUTE AUTO 7.12 K/mm3 (1.96-9.15); NEUTROPHILS PERCENT AUTO 60 % (41-73); Platelet Count 356 K/mm3 (150-400); RDW Coefficient Variation 14.6 % (11.7-14.2); RDW Standard Deviation 43.4 fL (35.1-46.3); Red Blood Cell Count 4.76 M/mm3 (3.80-5.20); White Blood Cell Count 11.92 K/mm3 (4.00-11.30)
[2024-05-23 14:46] LABS: Albumin, Blood 3.3 g/dL (3.4-5.0); Albumin/Globulin Ratio 0.7 (0.8-1.8); Bilirubin, Total 0.4 mg/dL (0.1-1.0); Bun/Creatinine Ratio 23.8 (12.0-20.0); Calcium, Blood 9.1 mg/dL (8.5-10.1); Creatinine, Blood 1.01 mg/dL (0.40-1.00); Globulin, Blood 4.6 g/dL (2.2-4.0); Potassium, Blood 4.4 mmol/L (3.5-5.5); Total Protein, Blood 7.9 g/dL (6.4-8.2)
[2024-05-23] MEDS ORDERED: NS 1,000 ML IV SCH (14:55)
[2024-05-23] MEDS ORDERED: Acetaminophen 325 MG TABLET PO PRN (17:40)
[2024-05-23] MEDS ORDERED: Ondansetron 4 MG TAB PO PRN ×2 (17:45)
[2024-05-23] MEDS ORDERED: Morphine Sulfate 4 MG/1 ML Injection IV PRN (17:45)
[2024-05-23] MEDS ORDERED: Ketorolac Tromethamine 15mg Vial IV PRN (17:55)
[2024-05-23] MEDS ORDERED: Lactated Ringer's 1,000 ML IV SCH (19:20)
[2024-05-23] MEDS ORDERED: Ipratropium 0.06% Nasal Spray PRN (19:45)
[2024-05-23] MEDS ORDERED: STEGLATRO15 MG PO (19:48)
--- NOTE | 2024-05-23 19:48 | NUR ---
NEW ADMIT. PATIENT ADMITTED TO ROOM 357 FROM THE ER. PATIENT ARRIVED TO ROOM VIA WHEELCHAIR AND 1P TRANSFER. DAUGHTER AND SON IN-LAW IN WITH PATIENT. PATIENT ABLE TO AMBULATE WITH STEADY GAIT TO HOSPITAL BED FROM WHEELCHAIR. PATIENT ARRIVED IN DAY CLOTHES AND WITH PURSE-PATIENT EDUCATED ON HAVING FAMILY TAKE PERSONAL BELONGINGS HOME. THIS RN TO ASSUME PATIENT CARE.
[2024-05-23] MEDS ORDERED: NOVOLIN R SC (19:49)
[2024-05-23 19:50] VITALS: BP 134/62
[2024-05-23] MEDS ORDERED: Ampicillin Sod/Sulbactam Sod 3 GM in NS 100 ML IV SCH (20:00)
[2024-05-23] MEDS ORDERED: Vancomycin HCL 2,000 MG in NS 500 ML IV ONE (20:00)
[2024-05-23] MEDS ORDERED: Insulin Glargine-Yfgn 100 Unit/mL 3 ML SYR SC SCH (20:00)
[2024-05-23] MEDS ORDERED: Pregabalin 75 MG Cap PO SCH (21:00)
[2024-05-23] MEDS ORDERED: Sennosides 8.6 MG Tab PO SCH (21:00)
[2024-05-24] VITALS (15 sets, daily range): BP systolic 108–167; BP diastolic 57–81
--- NOTE | 2024-05-24 04:26 | NUR ---
SHIFT SUMMARY. PATIENT IS A&OX4. PATIENT CALLS APPROPRIATELY AND IS ABLE TO MAKE HER NEEDS KNOWN. PATIENT UP INDEPENDENTLY TO BEDSIDE COMMODE. PATIENT NPO SINCE ARRIVAL TO FLOOR. PATIENT DIRECT ADMIT FROM OFFICE WITH PLAN OF AMPUTATION TO RIGHT GREAT TOE-WOUND TO TOE-PICTURES IN CHART. PATIENT IS PLEASANT AND COOPERATIVE WITH CARE. BED IS LOCKED IN THE LOWEST POSITION WITH CALL LIGHT IN REACH. NO EVENTS THIS SHIFT. CARE IS ONGOING.
[2024-05-24] MEDS ORDERED: NS 250 ML IV PRN (05:25)
[2024-05-24 05:41] LABS: BASOPHILS ABSOLUTE AUTO 0.04 K/mm3 (0.00-0.23); BASOPHILS PERCENT AUTO 0 % (0-2); EOSINOPHILS ABSOLUTE AUTO 0.41 K/mm3 (0.00-0.68); EOSINOPHILS PERCENT AUTO 4 % (0-6); Hematocrit 39.3 % (33.0-51.0); Hemoglobin 12.7 g/dL (11.5-16.0); IMMATURE GRAN ABSOLUTE AUTO 0.04 K/mm3 (0.00-0.10); IMMATURE GRAN PERCENT AUTO 0 % (0-1); LYMPHOCYTES ABSOLUTE AUTO 3.71 K/mm3 (0.84-5.20); LYMPHOCYTES PERCENT AUTO 36 % (21-46); MONOCYTES ABSOLUTE AUTO 0.91 K/mm3 (0.16-1.47); MONOCYTES PERCENT AUTO 9 % (4-13); Mean Corpuscular HGB 26.7 pg (26.0-34.0); Mean Corpuscular HGB Conc 32.3 g/dL (31.5-36.5); Mean Corpuscular Volume 83 fL (80-100); Mean Platelet Volume 10.5 fL (9.1-12.4); NEUTROPHILS ABSOLUTE AUTO 5.22 K/mm3 (1.96-9.15); NEUTROPHILS PERCENT AUTO 51 % (41-73); Platelet Count 328 K/mm3 (150-400); RDW Coefficient Variation 14.6 % (11.7-14.2); RDW Standard Deviation 43.7 fL (35.1-46.3); Red Blood Cell Count 4.75 M/mm3 (3.80-5.20); White Blood Cell Count 10.33 K/mm3 (4.00-11.30)
[2024-05-24 05:53] LABS: International Normalized Ratio 1.03
[2024-05-24 06:17] LABS: Albumin, Blood 3.1 g/dL (3.4-5.0); Albumin/Globulin Ratio 0.7 (0.8-1.8); Bilirubin, Total 0.3 mg/dL (0.1-1.0); Bun/Creatinine Ratio 24.7 (12.0-20.0); Calcium, Blood 8.7 mg/dL (8.5-10.1); Creatinine, Blood 0.97 mg/dL (0.40-1.00); Globulin, Blood 4.2 g/dL (2.2-4.0); Potassium, Blood 3.8 mmol/L (3.5-5.5); Total Protein, Blood 7.3 g/dL (6.4-8.2)
[2024-05-24] MEDS ORDERED: DESVENLAFAXINE50 M3 PO (06:47)
[2024-05-24] MEDS ORDERED: Norco 5-325 Ta1 EACH PO (06:48)
[2024-05-24] MEDS ORDERED: ABILIFY MYCITE5 M2 PO (06:48)
[2024-05-24] MEDS ORDERED: Vancomycin HCL 1,000 MG in NS 250 ML IV SCH (08:00)
[2024-05-24] MEDS ORDERED: MetFORMIN HCl 500 mg PO SCH (08:00)
[2024-05-24] MEDS ORDERED: Montelukast Sodium 10 MG Tab PO SCH (09:00)
[2024-05-24] MEDS ORDERED: Empagliflozin 10 MG TAB PO SCH (09:00)
[2024-05-24] MEDS ORDERED: Atorvastatin 10 MG Tab PO SCH (09:00)
[2024-05-24] MEDS ORDERED: Lisinopril 20 MG Tab PO SCH (09:00)
[2024-05-24] MEDS ORDERED: DULoxetine HCL 30 MG Cap DR PO SCH (09:00)
[2024-05-24] MEDS ORDERED: Bupivacaine 0.5% HCl 5 MG/ML 30MLVIAL ONE (12:44)
[2024-05-24] MEDS ORDERED: Lidocaine 1%-Epineph 1:100000 20 ML MDV ONE (12:44)
[2024-05-24] MEDS ORDERED: Lidocaine HCl 1% 30 ML SDV ONE (12:45)
[2024-05-24] MEDS ORDERED: Midazolam HCl 1MG / ML 2ML Vial ONE (12:46)
[2024-05-24] MEDS ORDERED: FentaNYL Citrate 50 MCG/ML 2 ML Injection ONE (12:46)
[2024-05-24] MEDS ORDERED: Lactated Ringer's 1,000 ML IV SCH (12:50)
--- NOTE | 2024-05-24 13:04 | NUR ---
PATIENT ADMITTED TO DAY SURGERY, TRANSPORTED VIA GURNEY. PATIENT TO KEEP UPPER DENTURES IN PER ANESTHESIOLOGIST, DR. IVERSON. PATIENT LEFT GLASSES IN HER ROOM. PATIENT STATES SHE HAS HAD NOW MENSES X2 YEARS AND POST-MENOPAUSE. NO HCG INDICATED FOR SURGERY TODAY.
--- NOTE | 2024-05-24 13:41 | NUR ---
05/24/24 1341 Dorina Wilburn NO PREOP ANTIBIOTICS ORDERED PER PATIENT IS ON SCHEDULED ANTIBIOTICS.
--- NOTE | 2024-05-24 14:35 | NUR ---
Spiritual Care Attempted } Pt. request Pt. is gone for surgery. Pts. daughter remnained at bedside and gave this couture alterations dressmaker an update. Daughter verbalized that she would life Pt. know of the spiritual care attempt.
[2024-05-24] MEDS ORDERED: Insulin Human Lispro 100 Units/ML 3ML Syringe SC SCH ×2 (16:30)
[2024-05-24] MEDS ORDERED: OxyCODONE HCL 5 MG TAB PO PRN (16:55)
[2024-05-24] MEDS ORDERED: BASAGLAR K100 UNIT/1 SC (17:45)
--- NOTE | 2024-05-24 18:28 | NUR ---
"Spiritual Care | Pt. request Pt. is in room after surgery and welcomes my visit. Pt. is plersant. Facilitated a life review, and listened with interest and empathy. Pt. verbalized that she is a long time employee at [employer]. Matters of jarrod and belief are considered as Pt. describes a nominal shinto belief. Pt. affirmed the desire for prayer. Prayed for Pt. Pt. verbalized gratitude for the spiritual care visit."
--- NOTE | 2024-05-24 18:36 | NUR ---
PATIENT ALERT AND ORIENTED TIMES FOUR, RA, NO TELE, REPORT OF PAIN. VSS, AFTER SURGERY RIGHT HELLUS AMPUTATION, CONSISTANT CARB DIET, AC/HS CBG , ROXICODONE 5MG PRN Q6, DC MORPHINE 5MG,NO REDNESS NOTED
[2024-05-25 04:09] VITALS: BP 169/80
[2024-05-25 07:06] LABS: BASOPHILS ABSOLUTE AUTO 0.04 K/mm3 (0.00-0.23); BASOPHILS PERCENT AUTO 1 % (0-2); EOSINOPHILS ABSOLUTE AUTO 0.34 K/mm3 (0.00-0.68); EOSINOPHILS PERCENT AUTO 4 % (0-6); Hematocrit 37.3 % (33.0-51.0); Hemoglobin 12.2 g/dL (11.5-16.0); IMMATURE GRAN ABSOLUTE AUTO 0.03 K/mm3 (0.00-0.10); IMMATURE GRAN PERCENT AUTO 0 % (0-1); LYMPHOCYTES ABSOLUTE AUTO 3.14 K/mm3 (0.84-5.20); LYMPHOCYTES PERCENT AUTO 37 % (21-46); MONOCYTES ABSOLUTE AUTO 0.53 K/mm3 (0.16-1.47); MONOCYTES PERCENT AUTO 6 % (4-13); Mean Corpuscular HGB Conc 32.7 g/dL (31.5-36.5); Mean Corpuscular Volume 83 fL (80-100); Mean Platelet Volume 10.3 fL (9.1-12.4); NEUTROPHILS ABSOLUTE AUTO 4.33 K/mm3 (1.96-9.15); NEUTROPHILS PERCENT AUTO 52 % (41-73); Platelet Count 296 K/mm3 (150-400); RDW Coefficient Variation 14.6 % (11.7-14.2); RDW Standard Deviation 43.4 fL (35.1-46.3); Red Blood Cell Count 4.52 M/mm3 (3.80-5.20); White Blood Cell Count 8.41 K/mm3 (4.00-11.30)
--- NOTE | 2024-05-25 07:15 | NUR ---
PATIENT TOLERATED BEING UP TO BSC WELL. MEDICATED TWICE WITH OXY/TYLE./TOREDOL COMBINATION. CIRC CHECK WNL TO RIGHT TOES SCD TO LLL ONLY. IV ABX INTERMITTANT.
[2024-05-25 07:36] VITALS: BP 141/80
[2024-05-25 07:37] LABS: Anion Gap 10 mmol/L (3-11); Blood Urea Nitrogen 17 mg/dL (8-24); Bun/Creatinine Ratio 19.1 (12.0-20.0); CO2, Blood 24 mmol/L (21-32); Calcium, Blood 8.4 mg/dL (8.5-10.1); Chloride, Blood 111 mmol/L (98-108); Creatinine, Blood 0.89 mg/dL (0.40-1.00); Glomerular Filtration Rate 77 (60-); Glucose, Blood 252 mg/dL (70-99); Potassium, Blood 3.9 mmol/L (3.5-5.5); Sodium, Blood 141 mmol/L (136-145); Vancomycin, Trough 21.9 ug/mL (5.0-10.0)
[2024-05-25] MEDS ORDERED: Vancomycin HCL 1,500 MG in NS 250 ML IV SCH (10:00)
--- NOTE | 2024-05-25 11:16 | NUR ---
PATIENT WANTING TO GO HOME, REPORTED TO DR POTTS, PATIENT HAD EMESIS WITHOUT NAUSEA, REPORTS PO ZOFRAN EFFECTIVE, LOWER DOSE VANCOMYCIN INFUSED, CALL LIGHT WITH IN REACH, PLEASANT TO CARE
[2024-05-25] MEDS ORDERED: Acetaminophen650 M1 PO (12:30)
[2024-05-25] MEDS ORDERED: AMOCLA875 PO (12:30)
--- NOTE | 2024-05-25 15:24 | NUR ---
1400 DISCHARGED HOME, DAUGHTER ACCOMPANYING, INSTRUCTIONS GIVEN TO PATIENT, PATIENT STATED UNDERSTANDING OF INSTRUCTIONS, MEDICATIONS, AND FOLLOW UPS. PATIENT DENIED FURTHER QUESTIONS, PLEASANT TO CARE, MEDICATED FOR PAIN PRIOR TO DISCHARGED, DAUGHTER DRIVING
== END 2024-05-25 14:05 | disposition home or self-care (01) | DRG 617 ==
LOC: ER 13:32 → MEDS 13:33
PROVIDERS: Emergency Medicine; Family Medicine; Podiatrist; ADMIT Family Medicine
PROC: 0Y6P0Z1 Detachment at Right 1st Toe, High, Open Approach (ICD-10-PCS; principal; 2024-05-24 13:30)
DX: E11.69 Type 2 diabetes mellitus with other specified complication (principal); E11.52 Type 2 diabetes mellitus with diabetic peripheral angiopathy with gangrene; M86.171 Other acute osteomyelitis, right ankle and foot; F33.1 Major depressive disorder, recurrent, moderate; E11.621 Type 2 diabetes mellitus with foot ulcer; L97.514 Non-pressure chronic ulcer of other part of right foot with necrosis of bone; Z66 Do not resuscitate; I10 Essential (primary) hypertension; E78.5 Hyperlipidemia, unspecified; E11.42 Type 2 diabetes mellitus with diabetic polyneuropathy; E66.9 Obesity, unspecified; E03.9 Hypothyroidism, unspecified; Z79.4 Long term (current) use of insulin
CPT/HCPCS: 36415; 80048; 80053; 80202; 82947; 83036; 84443; 85025; 85610; 87071; 87075; 87077; 87147; 87186; 87205; 88305; 94760; 96365; 96366; 96368; 96374; 96375; 96376; 99284-25; A9270; G0378; J0295; J1815; J1885; J2250; J2270; J3010; J3370; J7040; J7050; J7120

== ENCOUNTER 2024-07-17 13:37 | Day surgery (SDC) | payer OTHER ==
[~2024-07-17] VITALS: Ht 167.6 cm; Wt 98.0 kg
[~2024-07-17 13:37] MED LIST changes: +ABILIFY MYCITE5 M2 PO; +AMOCLA875 PO; +Acetaminophen650 M1 PO; +DESVENLAFAXINE100 M3 PO; +Norco 5-325 Ta1 EACH PO; +STEGLATRO15 MG PO
[2024-07-17] MEDS ORDERED: Lactated Ringer's 1,000 ML IV SCH (15:00)
[2024-07-17] MEDS ORDERED: Triple Antibiotic Ointment 30 gm ONE (15:06)
[2024-07-17] MEDS ORDERED: Lidocaine HCL 1% 10 ML MDV ONE (15:06)
[2024-07-17] MEDS ORDERED: Bupivacaine 0.5% Inj 10 ML Vial ONE (15:06)
[2024-07-17 15:27] VITALS: BP 147/76
[2024-07-17] MEDS ORDERED: RYBELSUS3 MG PO (15:37)
[2024-07-17] MEDS ORDERED: CeFAZolin Sodium 2,000 MG in NS 100 ML IV SCH (15:50)
[2024-07-17] MEDS ORDERED: Midazolam HCl 1MG / ML 2ML Vial ONE (16:01)
--- NOTE | 2024-07-17 16:01 | NUR ---
History, Chart, Medications and Allergies reviewed before start of procedure. Patient up to Ambulate independently. Gait steady. Pre-Op teaching done. Pt verbalizes understanding. Patient confirms NPO status and agrees with scheduled surgery. Lungs clear T/O to Auscultation. Patient States Post-Procedure ride home has been arranged.
--- NOTE | 2024-07-17 16:01 | NUR ---
PT TOOK SEMAGLUTIDE ORAL TAB YESTERDAY MORNING; BOTH PHYSICIANS NOTIFIED, OKAY TO PROCEED.
[2024-07-17] MEDS ORDERED: FentaNYL Citrate 50 MCG/ML 2 ML Injection ONE ×2 (16:02→16:18)
[2024-07-17] MEDS ORDERED: propofoL 20 ML IV ONE (16:18)
[2024-07-17] MEDS ORDERED: Dexamethasone Sod Phos 10 MG/ML 1ML VIAL ONE (16:30)
[2024-07-17] MEDS ORDERED: Ondansetron HCl 2 MG / ML 2ML Vial ONE (16:30)
[2024-07-17 16:35] VITALS: BP 157/78
[2024-07-17 16:40] VITALS: BP 161/89
[2024-07-17 16:55] VITALS: BP 158/84
[2024-07-17 17:05] VITALS: BP 152/78
--- NOTE | 2024-07-17 17:28 | NUR ---
Patient up to Ambulate independently. Gait steady. Discharge instructions reviewed with patient. Patient verbalizes understanding. Copy given to patient to take home. Dressing to procedure site clean, dry, intact with no visible drainage, swelling, erythema or bruising noted. Discharged via wheelchair to private car for ride home.
== END 2024-07-17 17:05 | disposition home or self-care (01) ==
LOC: ORSCMMR 13:37
PROVIDERS: Podiatrist
PROC: 0Y6R0Z1 Detachment at Right 2nd Toe, High, Open Approach (ICD-10-PCS; principal; 2024-07-17 15:30)
DX: M86.171 Other acute osteomyelitis, right ankle and foot (principal); L03.031 Cellulitis of right toe; I10 Essential (primary) hypertension; E11.9 Type 2 diabetes mellitus without complications; E78.5 Hyperlipidemia, unspecified; Z79.4 Long term (current) use of insulin; Z79.899 Other long term (current) drug therapy; Z79.84 Long term (current) use of oral hypoglycemic drugs; E66.9 Obesity, unspecified; Z68.34 Body mass index [BMI] 34.0-34.9, adult
CPT/HCPCS: 82947; 87071; 87075; 87077; 87147; 87186; 87205; 88305; 88311; A9270; J0690; J1100; J2001; J2003; J2250; J2405; J2704; J3010; J7120